=== PATIENT | male | born 1960 | race American Indian/Alaskan Native ===

== ENCOUNTER 2023-12-04 17:29 | Emergency (ER) | payer MEDICARE, MEDICAID ==
[2023-12-04] MEDS ORDERED: Amoxicillin/Clavulanate K 875-125 MG Tab PO ONE (17:54)
== END 2023-12-04 18:17 | disposition home or self-care (01) ==
LOC: DL.ED 17:29
DX: K08.89 Other specified disorders of teeth and supporting structures (principal); I10 Essential (primary) hypertension; E11.9 Type 2 diabetes mellitus without complications; I25.10 Atherosclerotic heart disease of native coronary artery without angina pectoris; F17.210 Nicotine dependence, cigarettes, uncomplicated; Z91.048 Other nonmedicinal substance allergy status
CPT/HCPCS: 99282; A9270